=== PATIENT | female | born 1950 | race African-American/Black ===

== ENCOUNTER 2016-12-26 05:46 | Day surgery (SDC) | payer MEDICARE, BC ==
--- NOTE | ~2016-12-26 | EGD ---
EGD REPORT [facility] [address] [id number] NAME: DEVORAH BOO : [birth year] STATUS : [place] [facility] [place]#: [id number] AGE: 66 ADM/REG DATE : 12/26/16 MR#: [id number] REPORT SERV DATE: 12/26/16 DICTATED BY: VIRGIL MEJIAS DATE: 12/26/16 REPORT STATUS : Draft [facility]: [facility] DATE: 12/26/16 Endoscopy Center Patient Name: Devorah Boo Date of : 1950 Attending MD: VIRGIL MEJIAS MD Procedure Date No Time: 12/26/2016 Procedure: Upper GI endoscopy Indications: Iron deficiency anemia, Dysphagia, Gastro-esophageal reflux disease Referring MD: NABILA ALCANTARA MD Medicines: See the Anesthesia note for documentation of the administered medications Complications: No immediate complications. Procedure: Pre-Anesthesia Assessment: - ASA Grade Assessment: III - A patient with severe systemic disease. After obtaining informed consent, the endoscope was passed under direct vision. Throughout the procedure, the patient's blood pressure, pulse, and oxygen saturations were monitored continuously. The GIF [id number] was introduced through the mouth, and advanced to the second part of duodenum. The upper GI endoscopy was accomplished without difficulty. The patient tolerated the procedure well. Findings: The examined duodenum was normal. One 5 mm sessile polyp was found in the gastric antrum. Biopsies were taken with a cold forceps for histology. 2 cm spread out polyp in prepyloric area, Biopsies were taken with a cold forceps for histology. (not able to remove endoscopically) A small hiatus hernia was present. The examined esophagus was normal. A guidewire was placed and the scope was withdrawn. Dilation was performed with a Savary dilator with no resistance at 48 Fr. Impression: - Normal examined duodenum. - One gastric polyp. Biopsied. - 2 cm spread out polyp in prepyloric area - Hiatus hernia. - Normal esophagus. Dilated. Recommendation: - Patient has a contact number available for emergencies. The signs and symptoms of potential delayed complications were discussed with the patient. Return to EGD REPORT [address] [address] NAME: DEVORAH BOO[place] : [birth year] STATUS : [place] [facility] [place] PAT#: [id number] AGE: 66 ADM/REG DATE : 12/26/16 MR#: [id number] REPORT SERV DATE: 12/26/16 DICTATED BY: VIRGIL MEJIAS DATE: 12/26/16 REPORT STATUS : Draft TRANSCRIBED BY: [employer] DATE: 12/26/16 normal activities tomorrow. Written discharge instructions were provided to the patient. - Continue present medications. - Full liquids today, soft diet tomorrow, regular diet the following day - FOR YOUR BIOPSY RESULTS: Please go to [email or web address] and register to receive your results via the portal. Your biopsy results will be posted there in about 7 to 10 days. IF you do not see result in 10 days, call office. Procedure Code(s): --- Professional --- 68750, Esophagogastroduodenoscopy, flexible, transoral; with insertion of guide wire followed by passage of dilator(s) through esophagus over guide wire 73397, Esophagogastroduodenoscopy, flexible, transoral; with biopsy, single or multiple Diagnosis Code(s): --- Professional --- K31.7, Polyp of stomach and duodenum K44.9, Diaphragmatic hernia without obstruction or gangrene D50.9, Iron deficiency anemia, unspecified R13.10, Dysphagia, unspecified K21.9, Gastro-esophageal reflux disease without esophagitis CPT copyright 2013 [employer]. All rights reserved. The codes documented in this report are preliminary and upon imaging administrator review may be revised to meet current compliance requirements. Virgil Mejias MD VIRGIL MEJIAS MD 12/26/2016 7:37 AM This report has been signed electronically. Number of Addenda: 0 Note Initiated On: 12/26/2016 7:21 AM Scope Withdrawal Time 0 hours 0 minutes 0 seconds [address] [id number]
--- NOTE | ~2016-12-26 | EGD ---
EGD REPORT [facility] [address] [id number] NAME: DEVORAH BOO : [birth year] [place] [facility] [place] [id number] AGE: 66 ADM/REG DATE : 12/26/16 MR#: [id number] REPORT SERV DATE: 12/26/16 DICTATED BY: VIRGIL MEJIAS DATE: 12/26/16 REPORT STATUS : Draft [facility] DATE: 12/26/16 Endoscopy Center Patient Name: Devorah Boo Date of : 1950 Attending MD: VIRGIL MEJIAS MD Procedure Date No Time: 12/26/2016 Procedure: Colonoscopy Indications: Iron deficiency anemia, Last colonoscopy: December 2013 Referring MD: NABILA ALCANTARA MD Medicines: See the Anesthesia note for documentation of the administered medications Complications: No immediate complications. Procedure: Pre-Anesthesia Assessment: - ASA Grade Assessment: III - A patient with severe systemic disease. After I obtained informed consent, the scope was passed under direct vision. Throughout the procedure, the patient's blood pressure, pulse, and oxygen saturations were monitored continuously. The [id number] was introduced through the anus and advanced to the cecum, identified by appendiceal orifice and ileocecal valve. The colonoscopy was performed without difficulty. The patient tolerated the procedure well. The quality of the bowel preparation was adequate. Findings: The perianal and digital rectal examinations were normal. Diverticula were found in the entire colon. Internal hemorrhoids were found during retroflexion and were medium-sized. A sessile polyp was found in the ascending colon. The polyp was small in size. The polyp was removed with a cold biopsy forceps. Resection and retrieval were complete. A sessile polyp was found in the transverse colon. The polyp was small in size. The polyp was removed with a cold biopsy forceps. Resection and retrieval were complete. Impression: - Diverticulosis in the entire examined colon. - Internal hemorrhoids. - One small polyp in the ascending colon. Resected and retrieved. - One small polyp in the transverse colon. Resected and retrieved. Recommendation: - Patient has a contact number available for EGD REPORT [address] [address] NAME: DEVORAH BOO : [birth year] [place] [facility] [place] [id number] AGE: 66 ADM/REG DATE : 12/26/16 MR#: [id number] REPORT SERV DATE: 12/26/16 DICTATED BY: VIRGIL MEJIAS DATE: 12/26/16 REPORT STATUS : Draft TRANSCRIBED BY: [employer] DATE: 12/26/16 emergencies. The signs and symptoms of potential delayed complications were discussed with the patient. Return to normal activities tomorrow. Written discharge instructions were provided to the patient. - Regular diet. - Continue present medications. - Repeat colonoscopy in 5 years for surveillance. - FOR YOUR BIOPSY RESULTS: Please go to [email or web address] and register to receive your results via the portal. Your biopsy results will be posted there in about 7 to 10 days. IF you do not see result in 10 days, call office. - Return to my office in 2 months. Procedure Code(s): --- Professional --- 34346, Colonoscopy, flexible, proximal to splenic flexure; with biopsy, single or multiple Diagnosis Code(s): --- Professional --- K64.8, Other hemorrhoids K57.30, Diverticulosis of large intestine without perforation or abscess without bleeding D12.3, Benign neoplasm of transverse colon D12.2, Benign neoplasm of ascending colon D50.9, Iron deficiency anemia, unspecified CPT copyright 2013 [employer]. All rights reserved. The codes documented in this report are preliminary and upon shoe designer review may be revised to meet current compliance requirements. Virgil Mejias MD VIRGIL MEJIAS MD 12/26/2016 7:49 AM This report has been signed electronically. Number of Addenda: 0 Note Initiated On: 12/26/2016 7:16 AM Scope Withdrawal Time 0 hours 6 minutes 22 seconds [id number] [place] [id number]
[~2016-12-26 05:46] MED LIST: 8 HOUR650 MG PO; ASAB PO; AUG875 PO; BENEFIBER PO; BYDUREON2 MG SQ; CARDCD360 PO; CITRACEL; CITRUCELSF PO; CLODERM EX; COREG12 PO; COZAAR100 MG PO; CRESTOR10 PO; CRESTOR5 MG PO; DESONATE0.05 % EX; DIOVAN HC2 PO; DSS PO; EPINEPHRINE; EPIPEN0.3 IM; FLONASE NAS; FLORASTOR250 MG PO; FORTAMET500 MG; FORTAMET500 MG PO; IRON PO; L40 PO; LEVEMFLXPN SC; LEVEMIR SC; LOP25 PO; LYRICA50 PO; MAGOX4 PO; NOVOLOG; NOVOLOG SC; NOVOPEN SC; PATADAY OPH; PEP20 PO; PREM45 PO; PREM9 PO; PRILO PO; PRILOSEC OTC20 MG PO; PROBIOTIC; PROBIOTIC OTC PO; SINGULAIR1 PO; SPIRO25 PO; STARLIX120 PO; SYMBICORT 160/41 INH INH; TAZTIA X3 PO; TESS PO; TRESIBA FL200 UNIT/1 PO; TRILIPIX135 MG PO; ULTRAM50 PO; VENTOLIN HFA INH; Z100 PO; ZANTAC300 MG PO; ZYRTEC ALLGY10 MG PO
== END 2016-12-26 23:59 | disposition home or self-care (01) ==
LOC: DMU 05:46
PROVIDERS: Internal Medicine Gastroenterology
PROC: 0DB78ZX Excision of Stomach, Pylorus, Via Natural or Artificial Opening Endoscopic, Diagnostic (ICD-10-PCS; 2016-12-26)
PROC: 0DB68ZX Excision of Stomach, Via Natural or Artificial Opening Endoscopic, Diagnostic (ICD-10-PCS; 2016-12-26)
PROC: 0D748ZZ Dilation of Esophagogastric Junction, Via Natural or Artificial Opening Endoscopic (ICD-10-PCS; 2016-12-26)
PROC: 0DBK8ZX Excision of Ascending Colon, Via Natural or Artificial Opening Endoscopic, Diagnostic (ICD-10-PCS; principal; 2016-12-26 07:30)
PROC: 0DBL8ZX Excision of Transverse Colon, Via Natural or Artificial Opening Endoscopic, Diagnostic (ICD-10-PCS; 2016-12-26 07:30)
DX: D12.3 Benign neoplasm of transverse colon (principal); D12.2 Benign neoplasm of ascending colon; K64.8 Other hemorrhoids; K57.30 Diverticulosis of large intestine without perforation or abscess without bleeding; K44.9 Diaphragmatic hernia without obstruction or gangrene; K21.9 Gastro-esophageal reflux disease without esophagitis; K31.7 Polyp of stomach and duodenum; I10 Essential (primary) hypertension; M19.90 Unspecified osteoarthritis, unspecified site; E11.9 Type 2 diabetes mellitus without complications; G47.33 Obstructive sleep apnea (adult) (pediatric); I48.92 Unspecified atrial flutter; Z88.2 Allergy status to sulfonamides; Z90.710 Acquired absence of both cervix and uterus; Z98.890 Other specified postprocedural states; Z88.5 Allergy status to narcotic agent; Z88.8 Allergy status to other drugs, medicaments and biological substances
CPT/HCPCS: 82962; 88305